=== PATIENT | female | born 1935 | race Caucasian/White ===

== ENCOUNTER → 2019-11-30 | Outpatient (CLI) | payer MEDICARE ==
--- NOTE | 2019-12-01 09:01 | XCELERA REPORT ---
[address] [address] Lower Extremity Arterial Evaluation Name: ANNETTE HYATT Age: 84 yrs Gender: Female : 1935 Patient Status: Outpatient Patient Location: Study Date: 11/30/2019 11:16 AM Procedure: A color flow and duplex scan of the lower extremity arteries was performed bilaterally with velocity and waveform anaylsis. Ankle brachial indicies performed. Reason For Study: LT CALF ULCER Ordering Physician: MJ LESTER Performed By: Christian Suarez Measurements and Calculations Right Left SOUND ASSISTANT PSV 125.7 173.8 cm/sec Prox PFA PSV -84.9 -74.6 cm/sec Prox SFA PSV 114.5 142.3 cm/sec Mid SFA PSV -119.4 -135.5cm/sec Dist SFA PSV -113.1 -100.9cm/sec Prox Pop A PSV 117.3 116.6 cm/sec Mid BOB PSV -120.7 146.7 cm/sec Dist LABORATORY CHIEF PSV 95.4 -31.9 cm/sec Eusebio Pedis PSV 55.4 115.7 cm/sec Right Side Arterial Evaluation Bandaging in place is a small impediment to procedure. Normal velocity and triphasic waveforms noted from the Common Femoral artery to the infrageniculate vessels . Ankle Brachial index 1.19. Left Side Arterial Evaluation Bandaging in place is a small impediment to procedure. Normal velocity and triphasic waveforms noted from the Common Femoral artery to the infrageniculate vessels . Ankle Brachial index 1.19. Interpretation Summary No hemodynamically significant lesions in the bilateral lower extremities, on duplex imaging, at rest. GERSON's are normal, suggesting no significant arterial obstruction. : MJ LESTER > David Ho
== END ==
LOC: SP 10:45
PROVIDERS: ATTEND Nurse Practitioner Family
DX: L97.222 Non-pressure chronic ulcer of left calf with fat layer exposed (principal)
CPT/HCPCS: 93922; 93925